=== PATIENT | male | born 1960 | race Caucasian/White ===

== ENCOUNTER 2021-03-19 08:22 | Observation (INO) ==
--- NOTE | 2021-02-22 14:23 | PAT Medication Instructions ---
Medication Instructions Date of Service February 22, 2021 Home Medications allopurinol 100 mg PO QAM ascorbic acid (vitamin C) [Vitamin C] 1 g PO QAM cetirizine [Zyrtec] 10 mg PO QAM cholecalciferol (vitamin D3) [Vitamin D3] 25 mcg PO QAM cyanocobalamin (vitamin B-12) 1,000 mcg PO QAM diclofenac sodium 4 g TOPICAL QID PRN fluticasone propionate [Flonase] 1 spray INTRANASAL QAM lansoprazole [Prevacid] 30 mg PO BID losartan 100 mg PO PM lovastatin 40 mg PO PM omeprazole magnesium [Prilosec OTC] 20 mg PO QAM STOP taking 24 hours before surgery diclofenac sodium 4 g TOPICAL QID PRN DO NOT take the morning of surgery ascorbic acid (vitamin C) [Vitamin C] 1 g PO QAM cetirizine [Zyrtec] 10 mg PO QAM cholecalciferol (vitamin D3) [Vitamin D3] 25 mcg PO QAM cyanocobalamin (vitamin B-12) 1,000 mcg PO QAM Take morning of surgery With a small sip of water, OTHERWISE NOTHING TO EAT OR DRINK AFTER MIDNIGHT: allopurinol 100 mg PO QAM fluticasone propionate [Flonase] 1 spray INTRANASAL QAM lansoprazole [Prevacid] 30 mg PO BID omeprazole magnesium [Prilosec OTC] 20 mg PO QAM Take evening before surgery lansoprazole [Prevacid] 30 mg PO BID losartan 100 mg PO PM lovastatin 40 mg PO PM Other Notes If you have any questions please call us at [phone] or [phone] or [phone] or [phone]
--- NOTE | 2021-02-23 09:39 | Anesthesiology Consultation ---
Date of Service February 23, 2021 Assessment & Plan (1) Encounter for pre-operative examination: - Abnormal preop CXR: Preop CXR notes interval development of round nodular opacity at the right base which might represent intrapulmonary lesion or superimposition of structures with short-term follow-up with PA and lateral chest radiograph is suggested. Report forwarded to PCP. Awaiting response from PCP if further imaging being done prior to surgery from their perspective. - COVID screening: Per assessment on 02/23: Travel screen negative, no known COVID-19 positive contacts or current COVID-19 related symptoms. Patient fully vaccinated. Surgeon arranging preop COVID testing (scheduled 03/15; [place]). Awaiting results. Chart Review Chart Review: Patient seen in Pre Admission Testing Teaching & Discussion Pre-Anesthesia Teaching/Discussion Notes: Instructed NPO after midnight before surgery,except medications with 15 cc of water. Medication instructions provided according to the PAT guidelines. History Surgery Operation Date: 03/19/21 09:05 Proposed Procedures p Left Knee Revision of Tibial Component versus Total Revision - Joby Grimm MD Height/Weight Height: 5 ft 10 in Weight: 104.5 kg Allergies Allergy/AdvReac Type Severity Reaction Status Date / Time cephalexin Allergy Unknown Pruritus, Verified 02/22/21 12:23 hives Medications Home Medications Medication Instructions Recorded Confirmed Last Taken allopurinol 100 mg PO QAM 02/22/21 02/22/21 Unknown ascorbic acid (vitamin C) [Vitamin 1 g PO QAM 02/22/21 02/22/21 Unknown C] cetirizine [Zyrtec] 10 mg PO QAM 02/22/21 02/22/21 Unknown cholecalciferol (vitamin D3) 25 mcg PO QAM 02/22/21 02/22/21 Unknown [Vitamin D3] cyanocobalamin (vitamin B-12) 1,000 mcg PO QAM 02/22/21 02/22/21 Unknown diclofenac sodium 4 g TOPICAL QID PRN 02/22/21 02/22/21 Unknown fluticasone propionate [Flonase] 1 spray INTRANASAL QAM 02/22/21 02/22/21 Unknown lansoprazole [Prevacid] 30 mg PO BID 02/22/21 02/22/21 Unknown losartan 100 mg PO PM 02/22/21 02/22/21 Unknown lovastatin 40 mg PO PM 02/22/21 02/22/21 Unknown omeprazole magnesium [Prilosec OTC] 20 mg PO QAM 02/22/21 02/22/21 Unknown Past Medical History Medical History Barretts esophagus Gastric dysmotility Resolved with NG tube/fluids > post op complication from knee surgery (per patient, no definitive obstruction found) GERD (gastroesophageal reflux disease) Rare breakthrough reflux Gout Hiatal hernia Hyperlipidemia Hypertension Obesity Painful total knee replacement, left Peripheral neuropathy Feet Seasonal allergies Exercise / Class Metabolic Activity III < 4 Walking/Shop/Light housework Past Surgical History Surgical History History of bilateral knee replacement History of colonoscopy History of esophagogastroduodenoscopy (EGD) History of tooth extraction Dental implants Hx of elbow surgery Right Hx of removal of cyst Near right ear Hx of vasectomy S/P correction of deviated nasal septum Past Anesthesia History No Family Hx of Anesthesia Complications Post-op (knee surgery) gastric dysmotility resolved with NG tube/fluids (per patient, no definitive obstruction found) Awareness with most recent knee replacement* History of PONV No Hx of PONV and No Hx of Motion Sickness Social History Smoking Status: Never smoker Do You Dip or Chew Tobacco: No Hx Alcohol Use: Yes Alcohol type: beer, wine and hard liquor alcohol intake frequency: a few times a week Hx Substance Use: No substance use type: does not use Review of Systems Rare snoring. No witnessed apnea events. Patient denies chest pain, shortness of breath, fever, chills, cough, wheezing, palpitations. Physical Exam Vital Signs VITALS BP 155/95 P 73 TEMP 98.4 SP02 98%RA RESP 16 PHYSICAL Full cervical extension range of motion. Full TMJ range of motion. TMD 3.5 finger breaths Mallampati Score 2 Dentition: intact, + crowns (several), upper front implant Lungs: clear throughout to auscultation Cardiac: regular rate and rhythm, no murmurs noted Spine: normal Carotid arteries: negative bruit Extremities: no edema Testing Laboratory Results 02/23/21 10:01 02/23/21 10:01 PT 10.3 Seconds (9.0-12.0) 02/23/21 10:01 INR 1.0 (0.9-1.1) 02/23/21 10:01 APTT 25.9 Seconds (21.0-31.0) 02/23/21 10:01 Blood Type A Positive 02/23/21 10: Antibody Screen NEGATIVE 02/23/21 10: Electrocardiogram Date: 02/23/21 SB at 59bpm. Otherwise normal ECG. unconfirmed report. Chest X-Ray Date: 02/23/21 Small atelectasis/scarring at the left base. Interval development of round nodular opacity at the right base which might represent intrapulmonary lesion or superimposition of structures. Short-term follow-up with PA and lateral chest radiograph is suggested. Report forwarded to PCP.
--- NOTE | 2021-02-23 10:59 | XRay Report ---
XR chest Pre-admission PA/Lat CLINICAL HISTORY: pat COMPARISON STUDY: September 02, 2014 FINDINGS: No pneumothorax. No pleural effusion. Minimal density seen at the left base which could represent atelectasis or scarring. Interval development of questionable ill-defined nodular opacity projecting does the anatomical locat ion of the right lower lung. Cardiomediastinal silhouette is within normal limits in size. Aorta is tortuous. No significant pulmonary vascular congestion. Osseous structures: Degenerative changes of the spine. IMPRESSION: 1. Small atelectasis/scarring at the left base. 2. Interval development of round nodular opacity at the right base which might represent intrapulmon carmela lesion or superimposition of structures. Short-term follow-up with PA and lateral chest radiograp h is suggested. ACT 112: Positive. There are findings on this exam that require communication between the performing entity and the patient following Patient Test Result Information Act ([place] Act 112) guidelines. Electronically signed by: Zina Vaughn DO 02/23/2021 10:57 AM
[2021-02-23 12:03] LABS: Basophils # (auto) 0.02 K/uL (0-0.2); Basophils % (auto) 0.3 %; Eosinophils # (auto) 0.33 K/uL (0-0.5); Eosinophils % (auto) 5.4 %; Hematocrit (blood only) 40.1 % (42-52); Hemoglobin 13.5 g/dL (14.0-18.0); Immature Granulocytes # (auto) 0.01 K/uL (0.00-0.02); Immature Granulocytes % (auto) 0.2 %; Lymphocytes # (auto) 1.81 K/uL (1.2-3.4); Lymphocytes % (auto) 29.6 %; Mean Corpuscular Hemoglobin 31.2 pg (25-34); Mean Corpuscular Hgb Conc 33.7 g/dL (32-36); Mean Corpuscular Volume 92.6 fL (80-100); Monocytes # (auto) 0.56 K/uL (0.11-0.59); Monocytes % (auto) 9.2 %; Neutrophils # (auto) 3.38 K/uL (1.4-6.5); Neutrophils % (auto) 55.3 %; Platelet Count 221 K/uL (130-400); RDW Coefficient of Variation 14.3 % (11.5-14.5); RDW Standard Deviation 48.9 fL (36.4-46.3); Red Blood Count 4.33 M/uL (4.7-6.1); White Blood Count 6.11 K/uL (4.8-10.8)
[2021-02-23 12:18] LABS: BUN Creatinine Ratio 17.4 (10-20); Blood Urea Nitrogen 15 mg/dl (7-18); Calcium 9.2 mg/dl (8.5-10.1); Carbon Dioxide 28 mmol/L (21-32); Chloride 106 mmol/L (98-107); Creatinine Clr Calc Pharmacy 109.1 ml/min; Est GFR (African American) 108.2; Est GFR (Non-African American) 93.4; Glucose 88 mg/dl (70-99); Potassium 4.3 mmol/L (3.5-5.1); Sodium 138 mmol/L (136-145)
[2021-02-23 12:19] LABS: C Reactive Protein < 0.29 mg/dl (0-0.29)
[2021-02-23 12:21] LABS: Partial Thromboplastin Time 25.9 Seconds (21.0-31.0); Prothrombin Time 10.3 Seconds (9.0-12.0)
--- NOTE | 2021-02-24 06:37 | Electrocardiogram Report ---
Test Reason : Blood Pressure : / mmHG Vent. Rate : 059 BPM Atrial Rate : 059 BPM P-R Int : 168 ms QRS Dur : 106 ms QT Int : 410 ms P-R-T Axes : 067 032 048 degrees QTc Int : 405 ms Sinus bradycardia Otherwise normal ECG When compared with ECG of 02-SEP-2014 16:02, No significant change was found Confirmed by Jose Chaney ([id number]) on 02/24/2021 6:36:31 AM Referred By: Joby Girmm Confirmed By:Jose Chaney
--- NOTE | 2021-03-13 19:23 | History and Physical Report ---
DATE OF ADMISSION: 03/19/2021 CHIEF COMPLAINT: Left knee pain, discomfort and swelling x6 months. HISTORY OF PRESENT ILLNESS: The patient is a 60-year-old gentleman status post bilateral knee replacements with the left one done on 11/25/2011. He has done pretty well from his knees. He developed intermittent swelling of the left knee significantly over the past 6 months. He did have an infectious workup in the past which was negative. He initially was not having much in the way of pain, but things have gotten progressively worse over the past several months. He developed swelling, pain and discomfort. He has pain when he weight bears. He has start up pain. The more he is up and on it, the more it swells and more it hurts. He now would like to have something done. Never had any problems with wound healing after surgery. There has never been any clinical signs of infections other than the swelling. PAST MEDICAL HISTORY: Significant for, 1. Chronic cough. 2. Hypertension. 3. Elevated cholesterol. 4. Gastroesophageal reflux disease. 5. Hiatal hernia. PAST SURGICAL HISTORY: Includes, 1. Distal biceps repair. 2. Left total knee replacement done on 11/25/2011. 3. Right knee replacement done on 10/03/2014. ALLERGIES: CEPHALEXIN. CURRENT MEDICINES: Include, 1. Zyloprim 100 mg a day. 2. Aspirin 325 twice a day. 3. Zyrtec p.r.n. 4. Vitamin B12. 5. Voltaren 75 mg twice a day. 6. Losartan 100 mg a day. 7. Mevacor 40 mg. 8. Omeprazole 20 mg. 9. Zantac 150 mg a day. SOCIAL HISTORY: A 60-year-old male. Fairly active. Does not smoke. FAMILY HISTORY: Noncontributory. REVIEW OF SYSTEMS: Negative for diabetes, neurologic problem, vascular problems or bleeding disorders. No chest pain or shortness of breath. No history of DVT or PE. No known bleeding problems. PHYSICAL EXAMINATION: GENERAL: Healthy, pleasant, middle-aged male, looks to be in good health. HEENT: Benign. NECK: Supple, no lymphadenopathy. LUNGS: Clear to auscultation. HEART: Has a regular rate and rhythm. ABDOMEN: Soft, nontender, nondistended. EXTREMITIES: Grossly neurovascularly intact except as follows: Examination of the left knee reveals the patient ambulates and does limp on his left side. He has got a slight varus alignment to his knee with a varus thrust with weightbearing. He has got a large knee joint effusion. Range of motion is 0-110. He does have some laxity to varus/valgus stressing. No pain with hip motion. X-RAYS: X-rays of the left knee were reviewed. It shows a left total knee replacement. He has got obvious loosening of the tibial tray and debonding from the cement. The tibial tray has gone into some varus. His patella is well from the trochlea. A little lucency under the anterior flange of the femoral component as well. LABORATORY DATA: We did do a workup. His sed rate and C-reactive protein are normal with a sed rate of 15 and C-reactive protein of less than 0.29. White cell count is normal. He did have a knee aspirate that revealed about 5000 white cells with 80% polys. His culture was negative. He also had a Synovasure test, which was negative. ASSESSMENT: A 60-year-old gentleman now 9 years out from a left knee replacement with what looks to be aseptic loosening of the tibial tray. He has had 2 infectious workups, which have been negative. He is debilitated by this problem and would like to have his left knee fixed. His right knee is doing well. PLAN: We are going to take him to the operating room and do a revision knee replacement. We are going to revise his entire knee. We will obviously check for infection. The risks and benefits of left total knee revision were explained to the patient including but not limited to DVT, PE, , infection, neurological injury, vascular injury, bleeding problem, pain, limited range of motion, stiffness, failure to relieve his symptoms, incomplete relief of symptoms, need for further surgery in the future, fracture, leg length inequality, nerve palsy, persistent pain, etc. The patient understands and desires to proceed. Informed consent was obtained. We will put vancomycin in his cement. Obviously, if there are signs of infection, we will have to place an antibiotic spacer, but I think this is unlikely. The patient did have a lot of GI issues after his last surgery. I am going to try and limit his narcotics and place him on something to prevent GI problems. HE ALSO HAS AN ALLERGY TO CEPHALOSPORINS. We will give him vancomycin preoperatively.
[~2021-03-19 08:22] MED LIST: ACETAMINOPHEN 500 MG TAB PO SCH; BUPIVACAINE 0.25% 30 ML VIAL ONE; BUPIVACAINE 0.5 % 5 MG/1 ML PF 10ML VIAL ONE; BUPIVACAINE LIPOSOME/PF 266 MG, BUPIVACAINE/EPINEPHRINE 50 ML, SODIUM CHLORIDE 0.9% 30 ... INFIL SCH; FAMOTIDINE 20 MG TAB PO SCH; GABAPENTIN 600 MG DOSE PO SCH; LR 500ML BOLUS, THEN 15ML/HR IV SCH; LR 60ML/HR IV SCH; Scopolamine 1 MG TDSY TD SCH; TRANEXAMIC ACID 1,000 MG **IV Intra-op IV SCH; VANCOMYCIN HCL 1,500 MG in SODIUM CHLORIDE 0.9% 500 ML IV SCH; ceFAZolin 2000MG 2,000 MG/15 ML SYR IV SCH
--- NOTE | 2021-03-19 09:04 | History & Physical Bridge Note ---
Date of Service March 19, 2021 History & Physical Bridge Note I have examined the patient, reviewed the History & Physical and in the interval since the performance of the History & Physical I have noted the following changes of clinical significance: no changes noted
[2021-03-19] MEDS ORDERED: EPINEPHrine INJ 1 MG/ML AMP ONE ×2 (09:59→10:46)
[2021-03-19] MEDS ORDERED: ROPIVACAINE 0.5% 5 MG/ML 30 ML VIAL ONE (09:59)
[2021-03-19] MEDS ORDERED: LIDOCAINE 2% 2 ML VIAL/AMP(20MG/ML) INFIL ONE ×2 (10:12→14:24)
[2021-03-19] MEDS ORDERED: MIDAZOLAM HCL 1 MG/ML 2ML VIAL ONE ×3 (10:12→13:42)
[2021-03-19] MEDS ORDERED: fentaNYL citrate 100 MCG/2 ML VIAL ONE (10:12)
[2021-03-19] MEDS ORDERED: PROPOFOL IV EMULSION 10 MG/ML 20 ML VIAL IV ONE ×6 (10:12→14:24)
[2021-03-19] MEDS ORDERED: ONDANSETRON INJ 2 MG/ML 2 ML VIAL IV PRN ×2 (10:35→16:09)
[2021-03-19] MEDS ORDERED: ATROPINE SULFATE 0.1 MG/ML 10ML SYR IV PRN (10:35)
[2021-03-19] MEDS ORDERED: ePHEDrine sulfate 50 MG/ML AMP IV PRN (10:35)
[2021-03-19] MEDS ORDERED: fentaNYL citrate 100 MCG/2 ML VIAL IV PRN (10:35)
[2021-03-19] MEDS ORDERED: HYDROmorphone INJ 1 MG/ML SYRINGE IV PRN (10:35)
[2021-03-19] MEDS ORDERED: SODIUM CHLORIDE 0.9% PF 50 ML VIAL ONE (10:45)
[2021-03-19] MEDS ORDERED: BUPIVACAINE LIPOSOME 1.3% 266 MG/20 ML VIAL ONE (10:46)
[2021-03-19] MEDS ORDERED: BUPIVACAINE 0.25% 30 ML VIAL ONE (10:46)
[2021-03-19] MEDS ORDERED: VANCOMYCIN HCL 1000MG/20ML VIAL ONE (10:47)
[2021-03-19] MEDS ORDERED: KETAMINE 50 MG/5 ML SYRINGE ONE (11:39)
[2021-03-19] MEDS ORDERED: ePHEDrine sulfate 50 MG/ML SYR ONE (12:25)
[2021-03-19] MEDS ORDERED: PHENYLEPHRINE 100MCG/ML 5ML SYR ONE (12:25)
--- NOTE | 2021-03-19 15:14 | Post Operative Brief Note ---
PG Immediate Post Op with CF Date of Surgery March 19, 2021 Pre & Post Diagnosis Operation Date: 03/19/21 10:40 Pre-Op Diagnosis: Left Total Knee Aseptic Loosening of Tibial Component Post-Op Diagnosis: Left Total Knee Aseptic Loosening of Tibial Component I identified the patient and participated in the time-out.: Yes Procedure Operation Date: 03/19/21 10:40 Actual Procedures p Left Total Knee Revision (Left) - Joby Grimm MD Surgeon Joby Grimm MD Dobby Loom Fixer Aquiles, PAC Estimated Blood Loss 150 Findings Consistent with Post-Op Diagnosis Specimens Specimen Description: Culture #1--Left Knee Synovial Fluid--for STAT gram stain, routine culture and sensitivity, aerobes and anaerobes--sent to lab at 1150 Frozen Section #1--Left Knee Synovium--#of polys per high power field--sent to lab at 1159 Drains Cramer Catheter Anesthesia Type Spinal MAC Complications none Disposition Accompanied Patient To Recovery: No Disposition: Recovery Room
--- NOTE | 2021-03-19 15:14 | Anesthesiology Progress Note ---
Date of Service March 19, 2021 Anesthesia Post Procedure Vital Signs Vital Signs: Temp Pulse Pulse Resp BP Pulse Ox 03/19/21 15:05 62 18 134/81 100 03/19/21 14:56 36.9 C 79 19 134/82 100 03/19/21 09:40 66 18 140/92 97 03/19/21 09:08 37.3 C 64 18 157/101 H 97 Transfer of Care Handoff Completed per policy Notes Mental Status: alert / awake / arousable and participated in evaluation Patient Amnestic to Procedure: Yes Nausea / Vomiting: adequately controlled Pain: adequately controlled Airway Patency, RR, SpO2: stable & adequate BP & HR: stable & adequate Hydration State: stable & adequate Neuraxial Anesthesia: was administered and sensory block is resolving Anesthetic Complications: no major complications apparent and Pt Satisfied with anesthetic care
--- NOTE | 2021-03-19 15:29 | XRay Report ---
TWO VIEWS LEFT KNEE CLINICAL HISTORY: Postoperative examination. FINDINGS: AP and crosstable lateral portable views of the left knee are obtained. A left knee arthrop lasty is in near anatomic alignment. There are long tibial and femoral stems. There has been undersur face remodeling of the patella. No acute fracture is seen. There are expected postoperative changes a round the knee including skin clips, soft tissue edema, and subcutaneous gas. IMPRESSION: Expected postoperative changes status post left knee arthroplasty. No acute fracture is s een. ACT 112: Negative or not required by law. Electronically signed by: Leonardo Cerda M.D. 03/19/2021 3:28 PM
[2021-03-19] MEDS ORDERED: NALOXONE HCL 0.4 MG/1 ML VIAL/CARP IV PRN (16:09)
[2021-03-19] MEDS ORDERED: MAGNESIUM HYDROXIDE SUSP 30 ML UDC PO PRN (16:09)
[2021-03-19] MEDS ORDERED: HYDROmorphone INJ 0.5 MG/0.5 ML SYR IV PRN (16:09)
[2021-03-19] MEDS ORDERED: diphenhydrAMINE Capsule 25 MG CAP PO PRN (16:09)
[2021-03-19] MEDS ORDERED: VANCOMYCIN CONSULT ACTIVE PRN (16:09)
[2021-03-19] MEDS ORDERED: METOCLOPRAMIDE HCL INJ 5 MG/ML 2 ML VIAL IV PRN (16:09)
[2021-03-19] MEDS ORDERED: ALUMINUM/MAGNESIUM SUSP 30 ML UDC PO PRN (16:09)
[2021-03-19] MEDS ORDERED: TAMSULOSIN HCL 0.4 MG CAP PO PRN (16:09)
[2021-03-19] MEDS ORDERED: bisacodyL 10 MG SUPP PR PRN (16:09)
[2021-03-19] MEDS: Scopolamine CHECK PATCH PLACEMENT SCH ×2 (16:11→23:03)
[2021-03-19] MEDS: SODIUM CHLORIDE 0.9% 1000ML 1,000 ML IV SCH (16:30)
[2021-03-19] MEDS: ASCORBIC ACID 500 MG TAB PO SCH (17:38)
[2021-03-19] MEDS: KETOROLAC 30 MG/ML VIAL IV SCH ×2 (17:39→22:08)
--- NOTE | 2021-03-19 17:47 | Operative Report ---
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 Her debonded from the underlying cement. None there is extensive osteolysis of the entire distal femur particular the lateral side and of the proximal posterior tibia and medial tibia. Large knee joint effusion. Extensive synovitis. Fluids 1500 cc Specimens Left knee sent August sent for frozen section which revealed less than 2 polys per high-power field. Joint fluid sent for stat Gram stain aerobic anaerobic culture. Complications none Disposition Accompanied Patient To Recovery: No Disposition: Recovery Room Indications Patient is a 60-year-old gentleman is had a long history of bilateral knee problems. He has undergone open meniscectomies many years ago and then a left knee replacement about 8 years ago. Did well for the first 7-1/2 years. He did have some intermittent swelling but about 6 months ago started having significant pain discomfort and increased swelling. Over time his tibial tray showed obvious loosening. He has had 2 infectious work-ups which have been negative including 2 - Synovasure test. Patient elected proceed with surgical revision for proposed aseptic loosening. Description of Procedure Operative implants consist of: 1. Biomet Vanguard 360 size 67.5 left posterior stabilized femoral component with a 5 mm distal and 5 mm posterior lateral augment, 2.5 mm offset adapter, 18 x 80 offset femoral stem. 2. Biomet Vanguard III 160 size 75 tibial tray with a small cruciate wing, 2.5 mm offset adapter, 16 x 80 mm stem. 3. 20 mm posterior stabilized constrained polyethylene bearing. The patient was taken to the operating, identified, placed on the operating table supine position but all contractors were properly padded. IV antibiotics 5 by anesthesia team. A spinal anesthetic had been implemented holding area. Cramer catheter was placed in sterile fashion. A left thigh turn was then placed in the left lower extremities and prepped and draped in usual sterile fashion. The left leg was elevated exsanguinated with use of an Esmarch and turns placed at 300 mmHg. An anterior approach left knee was then performed to longitudinal incision using the previous incision and extending it about 2 cm approximately 1 cm distally. Sharp dissection was got through the subcutaneous tissue down the extensor mechanism. A medial parapatellar arthrotomy incision was made. This joint fluid was sent for stat Gram stain aerobic anaerobic culture. Subperiosteal dissection was carried out medially. A complete synovectomy of the suprapatellar pouch and medial and lateral gutters was performed. The synovium was sent off for frozen section which revealed less than 2 polys per high-power field. The patella was subluxated laterally. The polyethylene was removed. Attention drawn the femur. With use of a microsagittal saw the interface between the bone and the implant was developed. I then remove the implant without significant difficulty. There was extensive osteolysis particularly laterally. We did minimal damage and removing the implant itself. An osteotome was then used to remove the tibial tray which was grossly loose. I then used a drill to drill into the cement that was still in the tibia and then a small osteotome to create some fracture lines in the cement was moved from removed from the proximal tibia. Attention drawn toward bone preparation. The proximal tibia entered with the entry drill and then reamed up to a size 16. The reamer was left in place and the proximal tibial cutting guide was placed. The cut was made to remove about a millimeter from the most deficient aspect medial tibial plateau. This did take a fairly large piece off laterally. The tibia was then sized to a size 75. A 2 mm offset stem was selected. We then prepared the tibia for the 80 x 16 2.5 mm offset stem with a small cruciate wing and placed and fit nicely. Attention drawn the femur. The distal femur examined the sharp drill. Intramedullary canal was entered. I then reamed up to a size 18. The distal femoral cutting block was placed and the distal femoral cut was made to just remove millimeter bone from the medial side. I did cut from 5 mm augment distally. We then sized the femur to assist 67.5. Down the AP cutting block was pinned parallel to the epicondylar axis and the anterior cut, anterior chamfer, posterior cut and posterior chamfer cuts were made. I did cut for a 5 mm posterior lateral augment. Femoral component was assembled. The box cutting guide was placed and the box cut was made. The final trial implant was assembled and placed and fit clockwise nicely. I then trialed the knee in 20 mm insert fit most appropriately. We did elect to proceed with a constrained implant as he had some degree of lateral laxity particularly due to the large bony defect. The patella tracked nicely and the patella was well fixed and no signs of loosening so we elected to save this. The tourniquet was then let down for turn time 119 minutes while the components were assembled. We irrigated the wound extensively. The wound was packed. The components were assembled. Once they were assembled the leg was then get an Esmarch after with the tourniquet was down 11 minutes. The wound was extensively irrigated. We prepared the bone and got rid of all of the loose soft tissue. A triple batch of Pal[place] G cement was mixed with 2 additional grams of Td vancomycin. A femoral component was then cemented in place and spanning the metaphyseal segment followed by the tibial tray. A trial implant was placed the knee was brought out in full extension until cement hardened. Final cement check was then performed. We then laced the permanent 20 mm posterior stabilized polyethylene SUBJECTIVE: History of Present Illness:. The patella tracked nicely. The knee was stable. Attention drawn toward closing. The tourniquet was let down for second turn time 27 minutes. Hemostasis assured use electrocautery. I did inject locally with 100 cc of combination of 20 cc of Exparel, 30 cc normal saline, 50 cc of quarter percent Marcaine with epinephrine. Patient did receive 1 g tranexamic acid. The extensor mechanism closed with a combination 1 PDS suture #1 Vicryl suture in a [id number] fashion. The subcutaneous tissue was then closed with 2-0 Dexon suture in a buried knot fashion skin was closed skin merry. Leg was then cleaned dried a sterile dressing with Xeroform, 4 x 4's, sterile cast padding, Serge bandage were applied. Patient transferred to the recovery room in stable condition. Patient tolerated procedure well no complications Larry Kwan, my physician gynecological assistant, was present for the entire procedure. His assistance was essential and required for appropriate patient positioning, prepping and draping, surgical exposure, performing the technical details of the operation, placement the implants, closure of the wound, and placement of the sterile bandage. Allergies: [] Current Medications: [Reviewed, see below] Review of Systems: [Non-contributory] OBJECTIVE: Exam: [] Radiology Exam: [None] ASSESSMENT/PLAN: see above I attest to the content of the Intraoperative Record and any orders documented therein. Any exceptions are noted below.
[2021-03-19] MEDS ORDERED: METHYLNALTREXONE BROMIDE 12 MG/0.6 ML VIAL SQ SCH (18:00)
[2021-03-19] MEDS: PANTOprazole 40 MG TAB PO SCH (20:26)
[2021-03-19] MEDS: TAPENTADOL HCL ER 50 MG TABCR PO SCH (20:27)
[2021-03-19] MEDS: DOCUSATE SODIUM 100 MG CAP PO SCH (20:27)
[2021-03-19] MEDS ORDERED: SENNA 8.6 MG TAB PO SCH (21:00)
[2021-03-19] MEDS ORDERED: LOVASTATIN 20 MG TAB PO SCH (21:00)
[2021-03-19] MEDS ORDERED: TRANEXAMIC ACID / 0.7% NACL 1,000 MG/100 ML BAG IV SCH (21:00)
[2021-03-19] MEDS ORDERED: LOSARTAN POTASSIUM 50 MG TAB PO SCH (21:00)
[2021-03-19] MEDS ORDERED: LANSOPRAZOLE 30 MG SOLTAB PO SCH (21:00)
[2021-03-19] MEDS ORDERED: VANCOMYCIN HCL 1,500 MG in SODIUM CHLORIDE 0.9% 500 ML IV SCH (22:00)
[2021-03-19] MEDS: ACETAMINOPHEN 500 MG TAB PO SCH (22:07)
[2021-03-19] MEDS: oxyCODONE HCL IR 5 MG TAB (IMMEDIATE RELEASE) PO PRN (22:08)
[2021-03-19] MEDS: ASPIRIN 81 MG ECTAB PO SCH (22:08)
[2021-03-20] MEDS ORDERED: VANCOMYCIN HCL 1,500 MG in SODIUM CHLORIDE 0.9% 250 ML IV SCH
[2021-03-20] MEDS: SODIUM CHLORIDE 0.9% 1000ML 1,000 ML IV SCH (02:49)
[2021-03-20] MEDS: ACETAMINOPHEN 500 MG TAB PO SCH ×2 (05:37→13:08)
[2021-03-20] MEDS: KETOROLAC 30 MG/ML VIAL IV SCH ×2 (05:38→12:45)
[2021-03-20] MEDS: oxyCODONE HCL IR 5 MG TAB (IMMEDIATE RELEASE) PO PRN (05:38)
[2021-03-20 06:12] LABS: Hematocrit (blood only) 32.1 % (42-52); Hemoglobin 10.6 g/dL (14.0-18.0); Mean Corpuscular Hemoglobin 30.5 pg (25-34); Mean Corpuscular Volume 92.5 fL (80-100); Mean Platelet Volume 9.2 fL (7.4-10.4); Platelet Count 186 K/uL (130-400); RDW Coefficient of Variation 14.4 % (11.5-14.5); RDW Standard Deviation 49.2 fL (36.4-46.3); Red Blood Count 3.47 M/uL (4.7-6.1); White Blood Count 8.03 K/uL (4.8-10.8)
[2021-03-20 06:47] LABS: BUN Creatinine Ratio 19.7 (10-20); Calcium 8.5 mg/dl (8.5-10.1); Est GFR (African American) 113.9 ml/min; Est GFR (Non-African American) 98.3 ml/min
[2021-03-20] MEDS ORDERED: dexAMETHasone 10 MG in SYRINGE 0 ML IV SCH (08:00)
[2021-03-20] MEDS: Scopolamine CHECK PATCH PLACEMENT SCH (08:13)
[2021-03-20] MEDS ORDERED: FLUTICASONE PROPIONATE NA SPR 16 GM BTL SCH (09:00)
[2021-03-20] MEDS ORDERED: PSYLLIUM 58.6% POWDER PACKET PO SCH (09:00)
[2021-03-20] MEDS ORDERED: MULTIVITAMIN TAB PO SCH (09:00)
[2021-03-20] MEDS: ASPIRIN 81 MG ECTAB PO SCH (09:00)
[2021-03-20] MEDS ORDERED: allopurinoL 100 MG TAB PO SCH (09:00)
[2021-03-20] MEDS ORDERED: POLYETHYLENE (MIRALAX) 17 GM PACK PO SCH (09:00)
[2021-03-20] MEDS ORDERED: ASCORBIC ACID 500 MG TAB PO SCH (09:00)
[2021-03-20] MEDS ORDERED: CETIRIZINE HCL 10 MG TABLET PO SCH (09:00)
[2021-03-20] MEDS: ASCORBIC ACID 500 MG TAB PO SCH (09:00)
[2021-03-20] MEDS ORDERED: CHOLECALCIFEROL 1,000 UNITS 25 MCG TAB PO SCH (09:00)
[2021-03-20] MEDS ORDERED: CYANOCOBALAMIN 500 MCG TABLET (VITAMIN B-12) PO SCH (09:00)
[2021-03-20] MEDS: PANTOprazole 40 MG TAB PO SCH (09:01)
[2021-03-20] MEDS: DOCUSATE SODIUM 100 MG CAP PO SCH (09:02)
[2021-03-20] MEDS: PROSOURCE NO CARB 30 ML/PKT PO SCH ×2 (09:03→13:09)
[2021-03-20] MEDS: TAPENTADOL HCL ER 50 MG TABCR PO SCH (09:13)
--- NOTE | 2021-03-20 09:50 | Progress Notes ---
DATE: 03/20/2021 SUBJECTIVE: A 60-year-old gentleman now postop day 1 from a left revision knee arthroplasty. He is doing pretty well. Pain is controlled. No chest pain or shortness of breath. Not feeling dizzy or lightheaded. He is concerned about his bowel as he had troubles with bowel movements postoperatively previously. OBJECTIVE: VITAL SIGNS: Temperature 37.0. Vital signs stable. GENERAL: Shows a pleasant, middle-aged male. He is sitting up in bed, looks pretty comfortable. LUNGS: Clear to auscultation. HEART: Has a regular rate and rhythm. ABDOMEN: Soft, nontender, nondistended. EXTREMITIES: Grossly neurovascularly intact except as follows: Examination of the left lower extremity reveals the dressing and leg to be well aligned. He can dorsiflex and plantarflex his foot appropriately. He is neurologically intact. LABORATORY DATA: Hemoglobin 10.6. Hematocrit 32.1. Electrolytes are stable. ASSESSMENT: A 60-year-old gentleman postoperative day 1 from a left revision arthroplasty, doing pretty well. His pain is controlled. He is neurologically intact. He did have an ileus postoperatively before and he is concerned about that. PLAN: 1. DVT prophylaxis including thigh-high TEDs, SCDs, and aspirin twice a day. 2. PT/OT. Weightbear as tolerated. Left total knee protocol. 3. Pain control, doing okay with current pain regimen. 4. History of ileus. We are going to hold on any iron as his hemoglobin is acceptable. We will continue with the MiraLax and the Metamucil and use Dulcolax suppository if necessary. 5. Disposition: He is planning to be discharged to home and he is going to do outpatient therapy.
--- NOTE | 2021-03-24 06:31 | Discharge Summary ---
Date of Service March 24, 2021 Discharge Data Procedures Performed Operation Date: 03/19/21 10:40 Actual Procedures p Left Total Knee Revision (Left) - Joby Grimm MD Hospital Course (1) Status post revision of total replacement of left knee: This patient is a 60 year old admitted on 03/19/21 and underwent left total knee revision arthroplasty. He tolerated the procedure well and there were no complications. Transferred to the PACU post op and later to the orthopedic floor for further care. He was given vancomycin for antibiotic prophylaxis. He was also given HEIDI stockings, SCDs, and aspirin for DVT prophylaxis. Hemoglobin, hematocrit, and vital signs were monitored during his hospital stay and remained stable. Did not require any blood transfusions. There were no complications during his hospital stay. By post op day #1 the patient was tolerating a regular diet, pain was reasonably controlled with oral pain medicine, and he was participating in physical th erapy. On post op day #1 the patient was discharged home and set up with home health care. He was given printed discharge instructions including prescriptions for extra strength tylenol, aspirin, clindamycin, metamucil, miralax, and oxycodone. Continue physical therapy, weight bearing as tolerated. Continue HEIDI stockings. Follow up approximately 2 weeks post op or sooner if there are problems or concerns. Coding Level of Care Code None Diagnoses Status post revision of total replacement of left knee Z96.652
== END 2021-03-20 13:20 | disposition home or self-care (01) ==
LOC: 3E 08:22 → ASU 08:22